=== PATIENT | female | born 1980 | race Caucasian/White ===

== ENCOUNTER → 2020-10-25 07:56 | Outpatient (CLI) | payer BC, SELFPAY ==
--- NOTE | 2020-10-25 08:02 | MRI_ITS ---
HISTORY: Back and bilateral leg pain. TECHNIQUE: Multiplanar and multisequence MR images of the lumbar spine. IV Contrast dosage and agent: None. # of images incl. paperwork: 126. COMPARISON: None. FINDINGS: VERTEBRAE: Vertebral body heights maintained. Small hemangioma or focal fat in the L3 vertebral body. Degenerative endplate changes of L5-S1. ALIGNMENT: No significant anterior or posterior subluxation. CONUS: Normal morphology and position at L1. SOFT TISSUES: Mild posterior subcutaneous edema. INTERVERTEBRAL DISCS: L4-5: Mild posterior disc protrusion with annular fissure and facet arthropathy. No significant central canal stenosis or foraminal narrowing. L5-S1: Mild disc bulge with annular fissure and facet arthropathy. No significant central canal stenosis or foraminal narrowing. No significant posterior disc herniation, central canal stenosis, or foraminal narrowing at the other levels. MRI/Spine Lumbar (Routine) IMPRESSION: Mild degenerative disc disease at L4-5 and L5-S1 without significant spinal canal stenosis. at 1517 Reported and signed by: Ava Crowell MD Electronically Signed: Ava Crowell MD at 15:16 EDT Tel , Service support ,
== END ==
PROVIDERS: PCP Family Medicine; Visit Provider Chiropractor
DX: M54.40 Lumbago with sciatica, unspecified side (principal)
CPT/HCPCS: 72148

== ENCOUNTER 2021-05-21 05:53 | Day surgery (SDC) | payer OTHER, SELFPAY ==
--- NOTE | 2021-05-18 13:16 | HP.PCM_ITS ---
History and Physical Date of Admission: 05/21/21 Chief Complaint: Follow up post right lumbar medial branch block injection decreased pain by 80-90% for 4 hours History of Present Illness: This is a 41 Y/O female who was seen and evaluated at our office today as a follow up. Pain: back and hip Quality: aching, sharp/stabbing, burning Region: right hip , lower back Severity: constant but varies in intensity Timin Aggravated by: sitting, prolonged activity, driving Relieved by: hot tub Pain score (out of 10): 7/10 Other info: Follow up post lumbar injection decreased pain 80-90% for about 4 hours. States everything is the same but pain has increased. States when she bends over she can feel a pulling in her lower back. Reports pain in right hip. States it is hard for her to drive. she stated when she drives her pain gets worse. needs no refills. Review of Systems: Patient denies any recent fever, chills, headache, change in weight without trying, vision or hearing problems. No cp, sob, arreguin, pnd, orthopnea, or peripheral edema.They note no lumps or swollen glands, no new rashes, changing moles, or change in bowel or bladder function. No melena or BRBPR. Mood has been okay. states at times the pain makes her grouchy. Past Medical History: h/o Anemia s/p s/p hernia repair s/p gastric bypass s/p left acl repair s/p knee surgery x4 Family History: ======== Structured Family History ======== Patient reports their family members have no significant health history Social History: Living situation: Occupation: elementary school teacher's aide Tobacco: denies EtOH: social Rec. drugs: denies [Tobacco: Never smoker] Allergies: Bactrim DS Medications: 1) Iron 225mg , daily 2) Vitamin B12 injection, monthly 3) vitamin c, daily 4) vitamin D plus calcium , daily Physical Examination: Wt: 214 lb Ht/Ln: 63 in BMI: 37.9 BP: 110/71 Pulse: 73 RR: 16 Temp: 97.5F Well nourished and well developed in no acute distress. Alert and oriented to person, place and time. Affect is normal and appropriate. Mucosa pink and moist. Respirations even and unlabored. Neck is supple without significant lymphadenopathy or thyromegaly. Abdomen soft & non-tender. No HSM or masses appreciated. Extremities show no cyanosis, clubbing, or edema. Gait is Antalgic. Lumbar ROM is limited due to pain worse with extension. Lumbar paraspinal muscle tenderness worse on the right. Bilateral lumbar facet loading is positive worse on the right. SLR is negative on the right. Motor and sensory exam is unchanged. Goals: Health Concerns: Assessment & Plan: # Degeneration of lumbosacral intervertebral disc (M51.37): # Lumbosacral spondylosis (M47.817): # Lumbosacral stenosis (M48.07): # Lumbosacral radiculopathy (M54.17): # Arthropathy of lumbar facet (M46.96): # Long-term current use of drug therapy (Z79.899): Continue current medication regime. OARRS was reviewed today. UDS was reviewed and was compliant. Discussed with the pt today not to use OTC NSAID and they appear to understand. Discussed the common side effects of this medication and the need to follow-up regularly and alert me if any evidence of stomach upset, bleeding, black tarry stool, or BRBPR. Patient understands SOAPP score is 1 MRI of the lumbar spine was reviewed again with the pt today and they appear to understand. There are no signs of diversion or addiction with the pt, there is also no signs of abuse or misuse, continues to do well with their medications without any side effects, we will continue monitoring the pt closely. Reviewed with the pt today our opioid agreement and they appear to understand. PEG was reviewed today. Life style modifications were also discussed today and the pt appears to understand. Weight loss was recommended today through diet and exercise. Risks and benefits of the above meds were discussed with the pt and they appear to understand. The common side effects of the medications were discussed and all of their questions and concerns were answered and they appear to understand Discussed natural and expected course of this diagnosis and need to alert me if symptoms do not follow expected course, or if any worse. Pt is to continue with her HEP. Pt has tried multiple modalities, we will schedule the pt for a right lumbar radio frequency ablation L4-S1 under fluoroscopy as the pt has had excellent relief from 2 injections We have discussed the risks, benefits as well as alternatives of the procedure and the patient appears to understand and would like to proceed with the above plan. The above plan was discussed today with the pt in details and they appear to understand and agrees to continue with the plan.
[2021-05-21] VITALS (7 sets, daily range): BP systolic 116–139; BP diastolic 73–88; PULSE 63–75; RESP 16–18; TEMP 36.3–36.8; O2SAT 97–100; BMI 38.6
[2021-05-21] MEDS: Lactated Ringers 1,000 ML 15 ML IV (06:30)
--- NOTE | 2021-05-21 07:24 | RAD_ITS ---
STUDY: X-RAY - LUMBAR SPINE REASON FOR EXAM: Female, 41 years old. RADIO FREQ ABLATION, L4-S1,RIGHT TECHNIQUE: Intraoperative imaging provided for right L4-S1 facet radiofrequency ablation. COMPARISON: None FINDINGS: Intraoperative imaging provided for right L4-S1 radiofrequency ablation. RAD/L/S Spine Min 4 Views IMPRESSION: Intraoperative imaging provided for right L4-S1 radiofrequency ablation. Electronically Signed: Raghu Gaspar MD at 9:27 EST ,
[2021-05-21] MEDS: MethylPREDNISolone Acetate 40 MG/ML Vial IM (07:30)
[2021-05-21] MEDS: Lidocaine 1% (30 ml sdv) 30 ML Vial (07:30)
[2021-05-21] MEDS: Bupivacaine 0.25% 30 ML Vial (07:30)
--- NOTE | 2021-05-21 07:52 | PCM.OPRPT ---
Report of Operation Date of Procedure: 05/21/21 Pre-Operative Diagnosis: Lumbosacral spondylosis, lumbosacral degenerative disc disease, lumbar facet arthropathy Post-Operative Diagnosis: Lumbosacral spondylosis, lumbosacral degenerative disc disease, lumbar facet arthropathy Surgery/Procedure Performed:: Right-sided lumbar radiofrequency ablation of the medial branch L3, L4, L5, S1 Type of Anesthesia: MAC Estimated Blood Loss (mL): Minimal Description of Procedure: History and physical today was reviewed. Risks and benefits of procedure explained. The patient understood, agreed to the procedure and informed consent was obtained. IV inserted per routine protocol. The patient was taken to the operating room, placed in the prone position with a pillow positioned underneath the abdomen. The right side of the lower back was prepped and draped in a sterile fashion using iodine x 3. Under fluoroscopy guidance, on an oblique view, the L3 through S1 vertebral bodies were visualized. The skin and subcutaneous tissue was anesthetized with approximately 10 mL of 1% lidocaine using a 25-gauge regular needle. Under direct visualization with fluoroscopy at approximately 25-degree angle, starting on the right L3, ending on the right S1 passing through the L4-L5 using a 20-gauge 15 cm with a 10 mm curved active tip radiofrequency ablation needle the needle passed through the skin. The tip of the needle was maneuvered and directed towards the superior and medial gutter of the transverse process at the vicinity of the medial branch. Once the tip of the needle was in contact with the bone, the needle pulled approximately 2 mm up the bone. The stylet of each needle was then removed. After negative aspiration of blood with CSF and confirmation of AP as well as oblique view, radiofrequency ablation probe was then inserted at each level. Impedance was then recorded at L3 to be 262, at L4 303, at L5 337, at S1 326 ohm. Motor-evoked potential was then initiated to 1.5 volt without any motor response at each corresponding level. The probe was then removed intact and a total of 6 mL preservative-free 1% lidocaine was injected in divided doses between those 4 levels after negative aspiration of blood with CSF. The radiofrequency ablation probe was then reinserted after confirmation of AP, oblique as well as lateral view. Radiofrequency ablation was then initiated to 80 degrees Celsius for 90 seconds at each level. Once concluded, the probe was then removed intact and a total of 6 mL of preservative-free 0.25% Marcaine with 40 mg Depo-Medrol was injected in divided doses between those 4 levels. The needles were then removed intact. The patient experienced no signs or symptoms of intrathecal, intravascular injection. The patient experienced no paraesthesia. The procedure was completed without any apparent difficulty, any complication. The patient appeared to tolerate well. Sensory as well as motor exam was unchanged from prior to procedure. ASSESSMENT AND PLAN: This is a 41-year-old female with lumbosacral spondylosis, lumbosacral degenerative disc disease, lumbar facet arthropathy, status post right-sided radiofrequency ablation of the medial branch L3 through S1. The patient will continue her current medications. The patient will follow up in approximately 2 weeks for reevaluation. Complications None
== END 2021-05-21 23:59 | disposition home or self-care (01) ==
LOC: SDC 05:55 → AC 05:56
PROVIDERS: PCP Family Medicine; Referring Provider Anesthesiology Pain Medicine; Visit Provider Anesthesiology Pain Medicine
PROC: (CPT 64635; principal; 2021-05-21 07:25)
DX: M47.816 Spondylosis without myelopathy or radiculopathy, lumbar region (principal); M46.96 Unspecified inflammatory spondylopathy, lumbar region; M48.07 Spinal stenosis, lumbosacral region; M25.559 Pain in unspecified hip; M47.27 Other spondylosis with radiculopathy, lumbosacral region; M47.817 Spondylosis without myelopathy or radiculopathy, lumbosacral region; M51.37 Other intervertebral disc degeneration, lumbosacral region; Z79.899 Other long term (current) drug therapy; Z98.84 Bariatric surgery status
CPT/HCPCS: 64635; 64636; 72110; 76000; J7120